=== PATIENT | female | born 1950 | race Caucasian/White ===

== ENCOUNTER 2019-04-30 13:55 | Emergency (ER) | payer OTHER ==
[2019-04-30] MEDS ORDERED: METHYLPREDNISOLONE 125 MG INJ ONE (14:40)
[2019-04-30] MEDS ORDERED: ALBUTEROL 2.5 MG/3 ML NEB SOL ONE (14:41)
[2019-04-30] MEDS ORDERED: IPRATROPIUM BROM 0.5MG/2.5ML ONE (14:41)
[2019-04-30] MEDS ORDERED: AZITHROMYCIN 500 MG/250 ML BAG IV ONE (14:45)
--- NOTE | 2019-04-30 14:56 | RAD REPORT ---
EXAM DESCRIPTION: RAD - Chest Single View - 04/30/2019 2:47 pm CLINICAL HISTORY: CONGESTION COMPARISON: Portable February 2014 TECHNIQUE: AP portable chest image was obtained 04/30/2019 2:47 pm . FINDINGS: No peripheral mass or consolidation. Failure and volume overload are not suspected. Patien t has a mild chronic interstitial pattern similar to comparison. Heart and vasculature are normal. No measurable pleural effusion and no pneumothorax. No acute bony abnormality seen. No acute aortic fin dings suspected. IMPRESSION: Mild chronic interstitial pattern matches comparison. No acute findings.
[2019-04-30 15:21] LABS: Absolute Lymphocytes (CBC) 2.9 K/uL (0.7-4.9); Basophils % 0.4 % (0-1.3); Hematocrit 39.3 % (36.0-45.0); Lymphocytes % 39.3 % (15.3-44.8); MPV 8.6 fL (7.6-11.3); RBC Red Blood Cell Count 4.25 M/uL (3.86-4.86)
[2019-04-30 15:33] LABS: BUN Blood Urea Nitrogen 14 mg/dL (7-18); Bicarbonate 28 mmol/L (21-32); Glucose Level 86 mg/dL (74-106); Potassium 4.3 mmol/L (3.5-5.1); Sodium Level 140 mmol/L (136-145); Troponin (Emerg Dept Use Only) < 0.02 ng/mL (0.0-0.045)
--- NOTE | 2019-04-30 15:53 | EDPHYS ---
Physician Documentation [facility] Name: Desire Edmonds Age: 68 yrs Sex: Female : 1950 Arrival Date: 04/30/2019 Time: 13:58 Bed 13 Private MD: Trace De La Rosa E ED Physician Demetrius Pettit HPI: 04/29 14:34 This 68 yrs old Female presents to ER via Ambulatory with complaints of ma2 Asthma Exacerbation, Breathing Difficulty. 14:34 The patient presents to the emergency department with wheezing, Current therapy: None. ma2 Onset: The symptoms/episode began/occurred gradually, 6 hour(s) ago. Associated signs and symptoms: Pertinent negatives: fever, nausea, vomiting. Severity of symptoms: At their worst the symptoms were mild in the emergency department the symptoms are unchanged. The patient has not experienced similar symptoms in the past. Historical: - Allergies: 14:30 No Known Allergies; em - Home Meds: 14:30 Eliquis 5 mg oral tab [Active]; fluoxetine 40 mg Oral cap [Active]; carvedilol 3.125 mg em oral tab [Active]; montelukast oral oral [Active]; losartan oral oral [Active]; - PMHx: 14:30 CAD; fatty liver; CVA; DVT; PE; em - PSHx: 14:30 Heart stents; Carotid surgery; em - Immunization history:: Adult Immunizations up to date. - Social history:: Smoking status: Patient denies any tobacco usage or history of. Patient/guardian denies using alcohol, street drugs, The patient lives with family. - Family history:: not pertinent. ROS: 14:34 Constitutional: Negative for fever, chills, and weight loss. ma2 14:34 All other systems are negative. Exam: 14:34 Constitutional: This is a well developed, well nourished patient who is awake, alert, ma2 and in no acute distress. Chest/axilla: Normal chest wall appearance and motion. Nontender with no deformity. No lesions are appreciated. Cardiovascular: Regular rate and rhythm with a normal S1 and S2. No gallops, murmurs, or rubs. Normal PMI, no JVD. No pulse deficits. Respiratory: diffuse wheezes, Lungs have equal breath sounds bilaterally, clear to auscultation and percussion. No rales, rhonchi o s noted. No increased work of breathing, no retractions or nasal flaring. Abdomen/GI: Soft, non-tender, with normal bowel sounds. No distension or tympany. No guarding or rebound. No evidence of tenderness throughout. Neuro: Awake and alert, GCS 15, oriented to person, place, time, and situation. Cranial nerves II-XII grossly intact. Motor strength 5/5 in all extremities. Sensory grossly intact. Cerebellar exam normal. Normal gait. Psych: Awake, alert, with orientation to person, place and time. Behavior, mood, and affect are within normal limits. Vital Signs: 14:23 BP 147 / 66; Pulse 59; Resp 17; Temp 98.2(O); Pulse Ox 94% on R/A; Weight 127.01 kg; em Height 5 ft. 0 in. (152.40 cm) (R); Pain 4/10; 15:30 BP 150 / 74; Pulse 61; Resp 20; Pulse Ox 94% on R/A; em 16:30 BP 146 / 64; Pulse 57; Resp 18; Pulse Ox 96% on R/A; em 14:23 Body Mass Index 54.68 (127.01 kg, 152.40 cm) em MDM: 14:10 Patient medically screened. ma2 14:34 Differential diagnosis: acute asthma, exercise-induced asthma, reactive airway, ma2 anaphylaxis, URI, foreign body. Antibiotic administration: The patient is discharged and will get outpatient antibiotics. Data reviewed: vital signs, nurses notes. Counseling: I had a detailed discussion with the patient and/or guardian regarding: the historical points, exam findings, and any diagnostic results supporting the discharge/admit diagnosis, the presence of at least one elevated blood pressure reading (>120/80) during this emergency department visit, the need for outpatient follow up. 04/29 14:30 Order name: Troponin (emerg Dept Use Only); Complete Time: 15:52 [facility] 04/29 14:30 Order name: Blood Culture Adult (2) [facility] 04/29 14:30 Order name: XRAY CXR (1 view); Complete Time: 15:52 [facility] 04/29 14:30 Order name: BMP; Complete Time: 15:52 [facility] 04/29 14:30 Order name: CBC with Diff; Complete Time: 15:25 ma2 04/29 14:30 Order name: EKG; Complete Time: 14:32 pa2 04/29 14:30 Order name: Cardiac monitoring; Complete Time: 14:34 pa2 04/29 14:30 Order name: EKG - Nurse/Tech; Complete Time: 14:48 pa2 04/29 14:30 Order name: IV Saline Lock; Complete Time: 14:48 pa2 04/29 14:30 Order name: Labs collected and sent; Complete Time: 14:33 ma2 04/29 14:30 Order name: O2 Per Protocol; Complete Time: 14:33 ma2 04/29 14:30 Order name: O2 Sat Monitoring; Complete Time: 14:33 ma2 Administered Medications: 14:45 Drug: Albuterol 2.5 mg Route: Inhalation; em 15:33 Follow up: Response: No adverse reaction; Marked relief of symptoms em 14:45 Drug: Albuterol 2.5 mg Route: Inhalation; em 14:45 Drug: Albuterol 2.5 mg Route: Inhalation; em 14:45 Drug: AtroVENT Aerosol 0.5 mg Route: Inhalation; em 15:33 Follow up: Response: No adverse reaction; Marked relief of symptoms em 14:46 Not Given (Other Intervention Used): AtroVENT Aerosol 0.5 mg Inhalation once; Every 20 em min for a total of 3 treatments x3 14:48 Drug: SOLU-Medrol 125 mg Route: IVP; Site: right antecubital; em 15:55 Follow up: Response: No adverse reaction em 15:02 Drug: AZITHromycin 500 mg Route: IVPB; Infused Over: 1 hrs; Site: right antecubital; em 16:43 Follow up: Response: No adverse reaction; IV Status: Completed infusion; IV Intake: em 250ml Disposition: 04/30/19 15:53 Discharged to Home. Impression: Asthma. - Condition is Stable. - Discharge Instructions: Asthma, Pediatric. - Prescriptions for Zithromax Z- Mc 250 mg Oral Tablet - take 1 tablet by ORAL route as directed for 10 days Day 1 - take two (2) tablets one time. Day 2, 3, 4 , 5 take one (1) tablet once daily.; 10 tablet. Medrol (Mc) 4 mg Oral Tablets, Dose Pack - take 1 tablet by ORAL route as directed - follow package instructions; 1 packet. Albuterol Sulfate 90 mcg/actuation - inhale 1-2 puff by INHALATION route every 4-6 hours; 1 Inhaler. Albuterol Sulfate 2.5 mg /3 mL (0.083 %) Inhalation Solution for Nebulization - inhale 1 unit by NEBULIZATION route every 8 hours As needed; 1 box. - Medication Reconciliation Form, Thank You Letter, Antibiotic Education, Prescription Opioid Use form. - Follow up: Private Physician; When: Tomorrow; Reason: Continuance of care. Signatures: Dispatcher [employer] Joe Florence, RN RN Demetrius Diop MD MD ma2 Corrections: (The following items were deleted from the chart) 16:44 15:53 04/30/2019 15:53 Discharged to Home. Impression: Asthma. Condition is Stable. em Prescriptions for Zithromax Z-Mc 250 mg Oral Tablet - take 1 tablet by ORAL route as directed for 10 days Day 1 - take two (2) tablets one time. Day 2, 3, 4 , 5 take one (1) tablet once daily.; 10 tablet, Medrol (Mc) 4 mg Oral Tablets, Dose Pack - take 1 tablet by ORAL route as directed - follow package instructions; 1 packet, Albuterol Sulfate 90 mcg/actuation - inhale 1-2 puff by INHALATION route every 4-6 hours; 1 Inhaler. and Forms are Medication Reconciliation Form, Thank You Letter, Antibiotic Education, Prescription Opioid Use. Follow up: Private Physician; When: Tomorrow; Reason: Continuance of care. ma2
--- NOTE | 2019-04-30 15:53 | ER ---
Nurse's Notes [facility] Name: Desire Edmonds Age: 68 yrs Sex: Female : 1950 Arrival Date: 04/30/2019 Time: 13:58 Bed 13 Private MD: Trace De La Rosa E Diagnosis: Asthma Presentation: 04/29 14:23 Chief complaint: Patient states: cough and trouble breathing for 3 days, denies fever, em has productive cough. Coronavirus screen: The patient has NOT traveled to a country currently being monitored by the [facility] within the last 14 days. The patient has NOT had contact with any known and/or suspected case of coronavirus. Ebola Screen: Patient negative for fever greater than or equal to 101.5 degrees Fahrenheit, and additional compatible Ebola Virus Disease symptoms Patient denies exposure to infectious person. Patient denies travel to an Ebola-affected area in the 21 days before illness onset. No symptoms or risks identified at this time. Initial Sepsis Screen: Does the patient meet any 2 criteria? No. Patient's initial sepsis screen is negative. Does the patient have a suspected source of infection? No. Patient's initial sepsis screen is negative. Risk Assessment: Do you want to hurt yourself or someone else? Patient reports no desire to harm self or others. 14:23 Method Of Arrival: Ambulatory em 14:23 Acuity: RENU 3 em Historical: - Allergies: 14:30 No Known Allergies; em - Home Meds: 14:30 Eliquis 5 mg oral tab [Active]; fluoxetine 40 mg Oral cap [Active]; carvedilol 3.125 mg em oral tab [Active]; montelukast oral oral [Active]; losartan oral oral [Active]; - PMHx: 14:30 CAD; fatty liver; CVA; DVT; PE; em - PSHx: 14:30 Heart stents; Carotid surgery; em - Immunization history:: Adult Immunizations up to date. - Social history:: Smoking status: Patient denies any tobacco usage or history of. Patient/guardian denies using alcohol, street drugs, The patient lives with family. - Family history:: not pertinent. Screenin:00 Abuse screen: Denies threats or abuse. Nutritional screening: No deficits noted. em Tuberculosis screening: No symptoms or risk factors identified. Fall Risk None identified. Assessment: 14:23 General: Appears in no apparent distress. comfortable, Behavior is calm, cooperative, em Denies fever. Pain: Complains of pain in diaphragm Pain currently is 4 out of 10 on a pain scale. Neuro: Level of Consciousness is awake, alert, obeys commands, Oriented to person, place, time, situation, Appropriate for age. Cardiovascular: Denies chest pain, Capillary refill < 3 seconds Patient's skin is warm and dry. Rhythm is sinus rhythm. Respiratory: Reports shortness of breath at rest cough that is productive, Airway is patent Respiratory effort is even, unlabored, Respiratory pattern is regular, symmetrical, Breath sounds are diminished bilaterally. Onset: The symptoms/episode began/occurred 3 days ago, the patient has mild shortness of breath. Derm: Skin is intact, is healthy with good turgor, Skin is pink, warm \T\ dry. Musculoskeletal: Capillary refill < 3 seconds, Range of motion: intact in all extremities. 15:00 Reassessment: Patient appears in no apparent distress at this time. Patient and/or em family updated on plan of care and expected duration. Pain level reassessed. Patient is alert, oriented x 3, equal unlabored respirations, skin warm/dry/pink. Patient states feeling better. Patient states symptoms have improved. 16:10 Reassessment: Patient appears in no apparent distress at this time. Patient and/or em family updated on plan of care and expected duration. Pain level reassessed. Patient is alert, oriented x 3, equal unlabored respirations, skin warm/dry/pink. pending completion of IV ABX before being discharged. Vital Signs: 14:23 BP 147 / 66; Pulse 59; Resp 17; Temp 98.2(O); Pulse Ox 94% on R/A; Weight 127.01 kg; em Height 5 ft. 0 in. (152.40 cm) (R); Pain 4/10; 15:30 BP 150 / 74; Pulse 61; Resp 20; Pulse Ox 94% on R/A; em 16:30 BP 146 / 64; Pulse 57; Resp 18; Pulse Ox 96% on R/A; em 14:23 Body Mass Index 54.68 (127.01 kg, 152.40 cm) em ED Course: 13:00 Patient has correct armband on for positive identification. Placed in gown. Call light em in reach. Side rails up X 1. Side rails up X2. Pulse ox on. NIBP on. 13:00 Arm band placed on. em 13:58 Patient arrived in ED. ag5 13:58 Trace De La Rosa MD is Private Physician. ag5 14:10 Demetrius Pettit MD is Attending Physician. ma2 14:23 Joe Amaya, RN is Primary Nurse. em 14:25 Triage completed. em 14:51 XRAY CXR (1 view) In Process Unspecified. EDMS 14:51 EKG done, by hvac maintenance technician. reviewed by Demetrius Pettit MD. at1 15:00 Initial lab(s) drawn, by ms, sent to lab. Inserted saline lock: 22 gauge in right em antecubital area, using aseptic technique. Blood collected. 16:41 No provider procedures requiring assistance completed. IV discontinued, intact, em bleeding controlled, No redness/swelling at site. Pressure dressing applied. Administered Medications: 14:45 Drug: Albuterol 2.5 mg Route: Inhalation; em 15:33 Follow up: Response: No adverse reaction; Marked relief of symptoms em 14:45 Drug: Albuterol 2.5 mg Route: Inhalation; em 14:45 Drug: Albuterol 2.5 mg Route: Inhalation; em 14:45 Drug: AtroVENT Aerosol 0.5 mg Route: Inhalation; em 15:33 Follow up: Response: No adverse reaction; Marked relief of symptoms em 14:46 Not Given (Other Intervention Used): AtroVENT Aerosol 0.5 mg Inhalation once; Every 20 em min for a total of 3 treatments x3 14:48 Drug: SOLU-Medrol 125 mg Route: IVP; Site: right antecubital; em 15:55 Follow up: Response: No adverse reaction em 15:02 Drug: AZITHromycin 500 mg Route: IVPB; Infused Over: 1 hrs; Site: right antecubital; em 16:43 Follow up: Response: No adverse reaction; IV Status: Completed infusion; IV Intake: em 250ml Intake: 16:43 IV: 250ml; Total: 250ml. em Outcome: 15:53 Discharge ordered by . ma2 16:42 Discharged to home ambulatory. em 16:42 Condition: good 16:42 Discharge instructions given to patient, Instructed on discharge instructions, follow up and referral plans. medication usage, Demonstrated understanding of instructions, follow-up care, medications, Prescriptions given X 4. 16:44 Patient left the ED. em Signatures: Dispatcher [employer] Joe Florence, SAM RN em Cecilia Cortez, batchmaker EKG Tat1 Demetrius Pettit MD MD ma2 Hilton Gonzalez ag5
[2019-04-30 17:05] VITALS: TEMP 98.2
[2019-04-30 17:09] VITALS: BP 146/64; O2SAT 96
--- NOTE | 2019-04-30 21:50 | EKG ---
Test Date: 2019-04-30 Test Time: 14:48:44 Anodizer: CLAUDETTE MEASUREMENT RESULTS: Intervals: Rate: 55 RI: 144 QRSD: 88 QT: 426 QTc: 407 [place]: P: 59 RI: 144 QRS: 11 T: 28 INTERPRETIVE STATEMENTS: Sinus bradycardia Otherwise normal ECG Compared to ECG 03/16/2014 11:23:33 Sinus rhythm no longer present Electronically Signed On 04-30-19 21:49:54 CDT by Michael Diggs
== END 2019-04-30 16:44 | disposition home or self-care (01) ==
LOC: ER 13:55
DX: J45.909 Unspecified asthma, uncomplicated (principal); Z95.818 Presence of other cardiac implants and grafts; Z86.718 Personal history of other venous thrombosis and embolism; Z79.01 Long term (current) use of anticoagulants
CPT/HCPCS: 96365; 93005; 87040 ×2; 85025; 80048; 36415; 84484; 71045; 96375; 99285; 96366; J0456; J2930

== ENCOUNTER 2020-03-21 10:20 | Emergency (ER) | payer OTHER ==
--- OUTSIDE RECORDS SUMMARY | 2020-03-21 10:22 | XMS REPORT | Clinical Summary ---
:1950 Author Organization [facility] Address [address] [place] [address] Care Team Providers Name Role Phone Wily Garcia MD Primary Care Provider Allergies No Known Active Allergies Medications Medication Sig Dispensed Refills Start Date End Date Status gabapentin (NEURONTIN) Take 1 capsule 30 capsule 5 11/25/2016 Active 300 mg (300 mg total) by capsuleIndications: mouth nightly. Primary insomnia montelukast Take 1 tablet (10 90 tablet 3 12/31/2016 Active (SINGULAIR) 10 mg mg total) by tabletIndications: mouth nightly. Moderate asthma with exacerbation, unspecified whether persistent dicyclomine (BENTYL) TAKE ONE CAPSULE 60 capsule 1 03/10/2017 Active 10 MG capsule BY MOUTH TWICE DAILY sertraline (ZOLOFT) TAKE ONE TABLET 30 tablet 5 07/21/2017 Active 100 MG BY MOUTH ONCE tabletIndications: DAILY Depression, unspecified depression type propranolol (INDERAL) TAKE ONE TABLET 60 tablet 5 07/21/2017 Active 10 MG BY MOUTH TWICE tabletIndications: DAILY Essential hypertension, Essential tremor Active Problems Problem Noted Date Pneumonia 04/06/2017 Eczematoid otitis externa 12/31/2016 Irritable bowel syndrome with diarrhea 08/11/2016 Anxiety 08/11/2016 Pain of left lower extremity 07/08/2016 Essential tremor 07/08/2016 Moderate asthma with exacerbation 06/10/2016 Depression 05/14/2016 Bronchitis 05/14/2016 Orthopnea 05/06/2016 Last Assessment & Plan: Unclear if pulmonary issue. Suspect diastolic dysfunction. Euvolumic on exam Echo Return in 1 month. Bilateral low back pain 05/04/2016 Essential hypertension 05/04/2016 Last Assessment & Plan: Chronic. Improved control after Dr riana wiggins. Reviewed and no changes at this time. Lumbar disc disease with radiculopathy 05/04/2016 Glucose intolerance (impaired glucose tolerance) 05/04 Surgical History Surgery Date Site/Laterality Comments COLONOSCOPY 12/16/2016 Divert in the si gmoid and descending colon/mild colon ic spasm consistent with IBS/one 8mm poly p at the hepatic flexure/One 11mm polyp at th e hepatic flexure/BX TAKEN COLONOSCOPY 12/16/2016 N/A Procedure: COLON OSCOPY with bx & cold snare; Surgeon: Mika Mclain MD; Location: [facility]; Service: Gastroenterology; Laterality: N/A; colon polyps, diverticulosis, spastic colon Medical History Medical History Date Comments Hypertension Asthma Stroke (HCC) Hiatal hernia IBS (irritable bowel syndrome) Hemorrhoids Colon polyps Diverticulosis Family History Medical History Relation Name Comments Cancer Father Heart attack Father COPD Mother Relation Name Status Comments Father Mother Social History Tobacco Use Types Packs/Day Years Used Date Former Smoker Quit: 04/30/18 73 Smokeless Tobacco: Never Used Alcohol Use Drinks/Week oz/Week Comments No Sex Assigned at Date Recorded Not on file Last Filed Vital Signs Not on file Plan of Treatment Health Maintenance Due Date Last Done Comments COVID-19 VACCINE (1 of 2) 1966 HEPATITIS C SCREENING 10/19/1969 BREAST CANCER SCREENING 10/19/2001 COLONOSCOPY SCREENING 10/19/2001 SHINGLES VACCINES (#1) 10/19/2001 65+ PNEUMOCOCCAL VACCINE (1 of 1 - PPSV23) 10/19/2016 INFLUENZA VACCINE 09/15/2019 Results Not on fileafter 03/21/2019 Advance Directives For more information, please contact: [phone] Type Date Recorded Patient [employer] Explanati on Advance Directives, 11/09/2019 4:31 AM Living Will and Medical Power of Train Examiner Advance Directives, 11/09/2019 4:34 AM Living Will and Medical Power of Train Examiner Advance Directives, 11/26/2016 12:19 PM Living Will and Medical Power of Train Examiner Advance Directives, 04/06/2017 4:05 PM Living Will and Medical Power of Train Examiner
--- OUTSIDE RECORDS SUMMARY | 2020-03-21 10:23 | XMS REPORT | Continuity of Care Document ---
:1950 Author Organization [facility] t Address [address]. [address] [place] [address] Care Team Providers Name Role Phone Wily Garcia MD Primary Care Physician Zelda LUX Attending Clinician Unavailable JENIFER Attending Clinician Unavailable Zelda LUX Admitting Clinician Unavailable JENIFER Admitting Clinician Unavailable AMANDA Admitting Clinician Unavailable Problems Condition Condition Condition Status Onset Resolution Last Treating Co mments Source Name Details Category Date Date Treatment Clinician Date Pneumonia Pneumonia Disease Active [place] [facility] 2-21 [facility] 00:[facility]: st 00 Eczematoid Eczematoid Disease Active 2016-02 [place] otitis otitis 1-17 [facility] externa externa 00:00: st 00 Irritable Irritable Disease Active [place] bowel bowel 6-28 [facility] syndrome syndrome 00:00: st with with 00 diarrhea diarrhea Anxiety Anxiety Disease Active [place] 6-28 Methodi 00:00: st 00 Pain of Pain of Disease Active [place] left lower left lower 5-25 Me thodi extremity extremity 00:00: st 00 Essential Essential Disease Active [place] tremor tremor 5-25 Methodi 00:00: st 00 Moderate Moderate Disease Active [place] asthma asthma 4-27 Methodi with with 00:00: st exacerbati exacerbati 00 on on Depression Depression Disease Active [place] 3-31 Methodi 00:00: st 00 Bronchitis Bronchitis Disease Active [place] 3-31 Methodi 00:00: st 00 Orthopnea Orthopnea Disease Active Last [place] [facility] 3 Assessmen Methodi 00:00: t & Plan: st 00 Unclear if pulmonary issue. Suspect diastolic dysfuncti on.Euvolu caprice on examEchoR eturn in 1 month. Bilateral Bilateral Disease Active [place] low back low back 3- Method i pain pain 00:00: st 00 Essential Essential Disease Active Last [place] hypertensi hypertensi 05-04 Assessmen Methodi on on 00:00: t & Plan: st Chronic.I mproved control after Dr mayers adjusted meds.Revi ewed and no changes at this time. Lumbar Lumbar Disease Active [place] disc disc 05-04 [facility] disease disease 00:00: st with with 00 radiculopa radiculopa thy thy Glucose Glucose Disease Active [place] intoleranc intoleranc 3 Me thodi e e 00:00: st (impaired (impaired 00 glucose glucose tolerance) tolerance) Personal [facility] - other other [facility] mental and mental and l behavioral behavioral (L UF/LI disorders disorders V/SA ) Asthma Ast[facility] Problem [facility] ([facility]F/LI V/SA) Cerebrovas Cerebrovas Problem Active [facility]ular [facility] accident accident [facility] (LUF/LI V/SA) Dyspnea Dyspnea Problem Active [facility] (LUF/LI V/SA) Back Back Problem Active [facility] problem problem [facility] (LUF/LI V/SA) Peripheral Peripheral Problem Active [facility] vascular vascular [facility] - disease disease [facility] (disorder) (disorder) l (LUF/LI V/SA) Hypothyroi Hypothyroi Problem Active [facility] dism dism [facility] (LUF/LI V/SA) Disorder Disorder Problem [facility] - cardiovasc cardiovasc [place] ular ular l system system (LUF/LI V/SA) Allergies, Adverse Reactions, Alerts This patient has no known allergies or adverse reactions. Family History Family Member Diagnosis Comments Start Date Stop Date Source Father Myocardial infarction [facility] (LUF/ARISTIDES/SA) Mother Type [address] [facility] (LUF/ARISTIDES/SA) Natural father Cancer [facility] thodist Natural father Heart attack [place] [facility] Natural mother COPD [facility] thodist Social History Social Habit Start Date Stop Date Quantity Comments Source Sex Assigned At [facility] ethodist Tobacco use and 2017-04-06 2017-04-06 Never used [facility] ethodist exposure 00:00:00 00:00:00 Alcohol intake 2017-04-06 2017-04-06 Current [facility] thodist 00:00:00 00:00:00 non-drinker of alcohol (finding) History of 1971-05-01 Current smoker [facility] thodist tobacco use 00:00:00 Smoking Status Start Date Stop Date Source Never smoker [facility] (LUF/ARISTIDES/SA) Former smoker 2017-04-06 00:00:00 2017-04-06 00:00:00 [place] [facility] Medications Ordered Filled Start Stop Current Ordering Indication Dosage Frequency Signature Comments Components Source Medication Medication Date Date Medication? Clinician (SIG) Name Name sertraline Yes Depression, TAKE ONE [place] (ZOLOFT) 6-07 unspecified TABLET BY Methodi 100 MG 00:00: depression MOUTH ONCE st tablet 00 type DAILY propranolol Yes Essential TAKE ONE [place] (INDERAL) 6-07 tremor TABLET BY [facility] hodi 10 MG 00:00: MOUTH st tablet 00 TWICE DAILY dicyclomine Yes TAKE ONE naman (BENTYL) 10 1-25 CAPSULE BY [place] thodi MG capsule 00:00: MOUTH st 00 TWICE DAILY montelukast 2016-02 Yes Moderate 10mg QD Take 1 [place] (SINGULAIR) 1-17 asthma with tablet (10 Methodi 10 mg 00:00: exacerbatio mg total) st tablet 00 n, by mouth unspecified nightly. whether persistent gabapentin 2016-02 Yes Primary 300mg QD Take 1 [place] (NEURONTIN) 0-12 insomnia capsule M ethodi 300 mg 00:00: ([address] capsule 00 total) by mouth nightly. Aspirin Aspirin Yes 81mg QD [facility] (LUF/LI V/SA) atorvastati atorvastati Yes 20mg QD [facility] n 20 MG n 20 MG [facility] - Oral Tablet Oral Tablet M emoria l (LUF/LI V/SA) Breo Breo Yes 1inh QD [facility] Ellipta Ellipta [facility] - Inhaler 100 Inhaler 100 M emoria mcg-25 mcg-25 l mcg/dose mcg/dose (LUF/LI V/SA) Levothyroxi Levothyroxi Yes 25mcg QD [facility] ne Oral ne Oral [facility] (LUF/LI V/SA) Losartan Losartan Yes 25mg QD [facility] Potassium Potassium [facility] - 25 MG Oral 25 MG Oral Mem oria Tablet Tablet l (LUF/LI V/SA) meloxicam meloxicam Yes 15mg QD [facility] 15 MG Oral 15 MG Oral Tr es - Tablet Tablet Memoria l (LUF/LI V/SA) montelukast montelukast Yes 10mg QD [facility] 10 MG Oral 10 MG Oral Tr es - Tablet Tablet [facility] (LUF/LI V/SA) Sertraline Sertraline Yes 25mg QD [facility] 25 MG Oral 25 MG Oral Tr es - Tablet Tablet Mem[facility] l (LUF/LI V/SA) Tizanidine Tizanidine Yes muscle 2mg TID [facility] Oral Oral spasticity [facility] (LUF/LI V/SA) Immunizations Ordered Immunization Filled Immunization Date Status Commen ts Source Name Name influenza virus influenza virus 2018-02-14 Completed [facility] - vaccine, NOS vaccine, NOS 00:00:00 [facility] (LUF/ARISTIDES/SA) pneumococcal pneumococcal 2017-11-14 [facility] vaccine, NOS 00:00:00 [facility] (F/ARISTIDES/SA) Vital Signs Vital Name Observation Time Observation Value Comments Source BP Systolic 2018-05-12 14:30:00 130 mm[Hg] [facility] (LUF/ARISTIDES/SA) BP Diastolic 2018-05-12 14:30:00 60 mm[Hg] [facility] (LUF/ARISTIDES/SA) Pulse Rate 2018-05-12 14:03:00 56 /min [facility] (LUF/ARISTIDES/SA) Respiratory Rate 2018-05-12 14:03:00 19 /min [facility] (F/ARISTIDES/SA) O2% BldC Oximetry 2018-05-12 14:03:00 94 % [facility] (LUF/ARISTIDES/SA) Body Temperature 2018-05-12 12:20:00 97.9 F [facility] (LUF/ARISTIDES/SA) Weight Measured 2018-05-12 07:03:00 170.85 lbs [facility] Addi [facility] (LUF/ARISTIDES/SA) Height 2018-05-11 20:45:00 60 in [facility] (LUF/ARISTIDES/SA) BMI (Body Mass Index) 2018-05-11 20:45:00 33.5 kg/m2 [facility] (LUF/ARISTIDES/SA) Body Temperature 2018-04-30 14:54:00 98.3 F [facility] (F/ARISTIDES/SA) Pulse Rate 2018-04-30 14:54:00 76 /min [facility] (LUF/ARISTIDES/SA) Respiratory Rate 2018-04-30 14:54:00 20 /min [facility] (F/ARISTIDES/SA) O2% BldC Oximetry 2018-04-30 14:54:00 100 % [facility] (LUF/ARISTIDES/SA) BP Systolic 2018-04-30 14:54:00 136 mm[Hg] [facility] (LUF/ARISTIDES/SA) BP Diastolic 2018-04-30 14:54:00 74 mm[Hg] [facility] (LUF/ARISTIDES/SA) Height 2018-04-30 14:54:00 60 in [facility] (F/ARISTIDES/SA) Weight Measured 2018-04-30 14:54:00 169.75 lbs [facility] Addi [facility] (LUF/ARISTIDES/SA) BMI (Body Mass Index) 2018-04-30 14:54:00 33.3 kg/m2 [facility] (F/ARISTIDES/SA) Procedures This patient has no known procedures. Plan of Care Planned Activity Planned Date Details Comments Source Future Scheduled 2019-09-15 INFLUENZA VACCINE [place] [facility] Test 00:00:00 [code = INFLUENZA VACCINE] Future Scheduled 2016-10-19 65+ PNEUMOCOCCAL [place] [facility] Test 00:00:00 VACCINE (1 of 1 - PPSV23) [code = 65+ PNEUMOCOCCAL VACCINE (1 of 1 - PPSV23)] Future Scheduled 2001-10-19 BREAST CANCER [facility] thodist Test 00:00:00 SCREENING [code = BREAST CANCER SCREENING] Future Scheduled 2001-10-19 COLONOSCOPY SCREENING [place] [facility] Test 00:00:00 [code = COLONOSCOPY SCREENING] Future Scheduled 2001-10-19 SHINGLES VACCINES (#1) [place] [facility] Test 00:00:00 [code = SHINGLES VACCINES (#1)] Future Scheduled 1969-10-19 Hepatitis C screening [place] [facility] Test 00:00:00 (procedure) [code = 071747952] Future Scheduled 1967 COVID-19 VACCINE (1 of [place] [facility] Test 00:00:00 2) [code = COVID-19 VACCINE (1 of 2)] Encounters Start End Encounter Admission Attending Care Care Encounter Source Date/Time Date/Time Type Type Clinicians Facility Department ID 2019-11-30 2019-11-30 Outpatient MHSE [id number] MH 10:08:00 10:08:00 [facility] 2018-05-26 2018-05-26 PERS HX 3 JENIFER, [facility] [id number] 14:19:00 23:59:00 TIA & CI [facility] - NO RESID [facility] DEFICIT [address] ([address], V/SA) [place] [address] 2018-05-11 2018-05-12 TYPE 2 DM O JENIFER, [facility] [id number] 21:00:00 15:07:00 DIAB P [facility]ENIA [facility] GN[facility]N [address], V/SA) [place] [address] 2018-04-30 2018-04-30 ACUTE UP E AMANDA, [facility] [id number] 14:44:00 16:00:00 [facility] INFECTION [address], V/SA) [place] [address] 2017-11-09 2017-11-09 UNS ASTHMA E KOSCI, [facility] [id number] 11:00:00 14:48:00 W/ACUTE JOVANA [facility] - [facility] ia ON [address], V/SA) [place] [id number] Results Test Description Test Time Test Comments Results Result Comments Source ED2 CMP 2019-01-05 18:58:00 Test Item Value Reference Range Interpretation Comme nts Sodium (test code = NA) 142 mmol/l 128-145 Potassium (test code = K) 4.5 mmol/l 3.6-5.1 CO2 (test code = CO2) 30 mmol/l 18-33 Chloride (test code = CL) 101 mmol/l 98-108 Glucose (test code = GLU) 188 mg/dl 73-118 H Calcium (test code = CALC) 9.6 mg/dl 8.0-10.3 BUN (test code = BUN) 18 mg/dl 7-22 Creatinine (test code = CREA) 0.9 mg/dl 0.6-1.2 Alkaline Phos (test code = ALKP) 80 U/L 42-141 ALT (SGPT) (test code = ALT) 18 U/L 10-47 AST (SGOT) (test code = AST) 30 U/L 11-38 Total Bilirubin (test code = TBIL) 0.7 mg/dl 0.2-1.6 Albumin (test code = ALB) 3.7 gm/dl 3.3-5.5 T Protein (test code = TP) 7.0 gm/dl 6.4-8.1 ED2 [id number] 18:57:00 Test Item Value Reference Range Interpretation Comments Pro-BNP(B-Peptide) 61 0-125 THE METHO DOLOGY FOR DETECTION (test code = OF B-NATRIURETI C PEPTIDE HAS PROBNP) BEEN CHANGED T O "NT pro-BNP". THE N ORMAL RANGES HAVE CHANGED. PLEASE NOTE THAT RANGES ARE DEFINED BY THE AGE OF THE PATIENT. (<75 years old = 0-1 25 pg/ml 75years and old er = 0-450pg/ml). V ALUES ARE NOT INTERCHANGEABLE BETWEEN METHODS. 2006 ED2 TROPONIN-I [id number] 18:57:00 Test Item Value Reference Range Interpretation Comments Troponin-I (test 0.010 ng/ml 0.000-0.034 The 99th Pe rcentile URL code = TROP) is 0.045 ng/mL for the [employer] T roponin I. The Joint Euro pean Society of Cardiology/Kacy searcy hospitalkaren College of Card iology (ESC/ACC) and maricarmen hayes [facility] of Clinical [place] rosalinda Standards of La boratory Practices (NACB ) recommends that the diagnosis of AM I includes the presence of clinical history suggest liu of Acute Coronary Syndrome (ACS) and a max imum concentration o f cardiac troponin exceed ing the 99th percentile of a normal referenc e population [upp er reference limit (URL)] on at least one oc casion during the firs t 24 hours after the clini peggy event. ED2 [id number] 18:56:00 Test Item Value Reference Range Interpretation Comments WBC (test code = WBC) 6.8 10\\S\\9/L 3.5-10.0 LY% (test code = LY) 35.6 % 15.0-50.0 MIDS% (test code = MIDS) 6.4 % 2.0-15.0 Granulocytes % (test code = 58.0 % 35.0-80.0 GRA%) Lymphocytes (test code = 2.4 10\\S\\9/L 0.5-5.0 LYMPH) MID (test code = MID) 0.5 10\\S\\9/L 0.1-1.5 Granulocytes (test code = 3.9 10\\S\\9/L 1.2-8.0 GRAN) RBC (test code = RBC) 4.25 10\\S\\12/L 3.50-5.50 Hemoglobin (test code = HGB) 13.2 gm/dl 11.5-16.5 Hematocrit (test code = HCT) 39.2 % 35.0-55.0 MCV (test code = MCV) 92.1 fL 75.0-100.0 MCH (test code = MCH) 31.1 pg 25.0-35.0 MCHC (test code = MCHC) 33.7 gm/dl 31.0-38.0 RDW % (test code = RDW%) 12.9 % 11.0-16.0 MPV (test code = MPV) 9.4 fL 8.0-11.[address] HEAD W/O [id number] 17:51:43LEFT leg numbnessProcedure: ED2 CT HEAD W/O CONTRAST Exam Date: 01/05/2019 5:07 PMOrdering Provider: SASHA TODDlinical Indication: [id number]: NumbnessComparison: Head CT May 26, 2018Technique: CT head without contrast. 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 Chronic changes as above.This final report was electronically signed by Dr Phoenix Tabares MD 01/05/20195:45 PMDictated By: GAYATHRI TABARESKDate: 01/05/2019 17:45TIC CT HEAD W/O [id number] 15:51:15Procedure: TIC CT HEAD W/O CONTRAST Exam Date: 05/26/2018 3:00 PMOrdering Provider: YESENIA Lakeinical Indication: History transient ischemic attack. Change in speech andvoice. Hypertension.C omparison: None.Technique: CT head without contrast. 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 Chronic changes as above.This final report was electronically signed by Dr Kareem Christian DO 05/26/20183:44 PMDictated By: CHASE CHRISTIANINDate: 05/26/2018 15:44TYPE & [id number] 06:52:00 Test Item Value Reference Range Interpretation Comments ABO Blood Type (test code = ABO) B Rh (test code = RH) Positive Antibody Screen (test code = ABSCR) Negative Negative N ARMBAND# (test code = ARMBAND) GG 72 081 CBC WITH AUTO [id number] 06:18:00 Test Item Value Reference Range Interpretation Comments WBC (test code = 9.63 10\\S\\3/ul 4.80-10.80 WBC) RBC (test code = 4.43 10\\S\\6/ul 4.20-5.40 RBC) Hemoglobin (test 13.7 gm/dl 12.0-14.0 code = HGB) Hematocrit (test 42.1 % 37.0-47.0 code = HCT) MCV (test code = 95.0 fL 81.0-99.0 MCV) MCH (test code = 30.9 pg 27.0-31.0 MCH) MCHC (test code = 32.5 gm/dl 33.0-37.0 L MCHC) RDW (test code = 14.0 % 11.5-14.5 RDWVC) Platelet (test code 257 10\\S\\3/ul 130-400 = PLT) MPV (test code = 10.7 fL 7.4-10.4 A "NOT MEASUR ED" MPV) RESULTS ARE DIS PLAYED WHEN THE INSTRU MENT HAS A SUPPRESSE D OR UNREPORTABLE RE SULT. THIS WILL MOST OFTEN HAPPEN WITH THE MPV WHEN THERE IS A N ABNORMAL PLATEL ET DISTRIBUTION DU E TO A CRITICAL LOW VA LUE OR PLATELET CLUMPI NG. THE RDW MAY BE SUPPRESSED IF T HERE ARE MULTIPLE PE AKS PRESENT ON THE RBC HISTOGRAM. IN THIS CASE, A MANUAL REVIEW OF THE SLIDE WI LL BE PERFORMED, AND RBC MORPHOLOGY WILL BE NOTED ON THE RE PORT. NE% (test code = 51.3 % 42.0-75.0 NE) LY% (test code = 38.3 % 13.0-42.0 LY) MO% (test code = 6.9 % 4.0-14.0 MO) EO% (test code = 2.5 % 1.0-5.0 EO) BA% (test code = 0.7 % 0.0-3.0 BA) IG% (test code = 0.3 % 0.0-0.4 IG%) [id number] 06:14:00 Test Item Value Reference Range Interpretation Comments Sodium (test code = 143 mmol/l 137-145 NA) Potassium (test 3.7 mmol/l 3.5-5.1 code = K) Chloride (test code 109 mmol/l 98-107 H = CL) Calcium (test code 8.8 mg/dl 8.5-10.1 = CALC) CO2 (test code = 26 mmol/l 21-32 CO2) Glucose (test code 118 mg/dl 74-106 H = GLU) BUN (test code = 15.0 mg/dl 7.0-18.0 BUN) Creatinine (test 1.0 mg/dl 0.5-1.3 code = CREA) EGFR if >60 Armenian (test code mL/min/1.73m\\ = EGFRAA) S\\2 EGFR if Non- 59 Estimate d Glomerular Armenian (test code mL/min/1.73m\\ Filtrat ion Rate (eGFR) = EGFRNA) S\\2 Reference Inter vals Decision Points for 18 years and older and average body ma ss: >= 60 Does not exc lude kidney disease. 30 - 59 Suggests modera te chronic kidney disease and indicat es the need for furthe r investigation including asses sment of proteinuria and cardiovascular factors. < 30 Usually in dicates a need for refe rral for assessment and management of c hronic kidney failure. XR CHEST 2 PA [id number] 12:31:32Procedure: XR CHEST 2 PA LATERALOrder Date: 05/08/2018 10:59 AMOrdering Provider: YESENIA Lakeinical Indication: [id number]: Pre-surgery evaluationComparison: November 09, 2017Findings:The lungs are clear and well-aerated. No pleural effusion or pneumothorax.Vascular calcifications are seen at theaortic arch. Cardiac silhouette isnormal in size.Impression:No acute pulmonary process.This final report was electronically signed by Dr Phoenix Tabares MD 05/08/201812:25 PMDictated By: GAYATHRI TABARESKDate: 05/08/2018 12:[id number] 11:59:00 Test Item Value Reference Range Interpretation Comments Sodium (test code = 145 mmol/l 137-145 NA) Potassium (test 3.8 mmol/l 3.5-5.1 code = K) Chloride (test code 110 mmol/l 98-107 H = CL) Calcium (test code 9.4 mg/dl 8.5-10.1 = CALC) CO2 (test code = 31 mmol/l 21-32 CO2) Glucose (test code 100 mg/dl 74-106 = GLU) BUN (test code = 18.0 mg/dl 7.0-18.0 BUN) Creatinine (test 0.9 mg/dl 0.5-1.3 code = CREA) EGFR if >60 Armenian (test code mL/min/1.73m\\ = EGFRAA) S\\2 EGFR if Non- >60 Estimate d Glomerular Armenian (test code mL/min/1.73m\\ Filtrat ion Rate (eGFR) = EGFRNA) S\\2 Reference Inter vals Decision Points for 18 years and older and average body ma ss: >= 60 Does not exc lude kidney disease. 30 - 59 Suggests modera te chronic kidney disease and indicat es the need for furthe r investigation including asses sment of proteinuria and cardiovascular factors. < 30 Usually in dicates a need for refe rral for assessment and management of c hronic kidney failure. CORONARY [id number] 11:59:00 Test Item Value Reference Range Interpretation Comments Triglycerides (test 121 mg/dl 0-149 Trig. In terpretation code = TRIG) Guide: Nor mal: < 150 mg/dl Borderline High : 150 - 199 mg/dl High: 200 - 499 mg/dl Very High: >= 5 00 mg/dl Cholesterol (test code 177 mg/dl 0-200 = CHOL) HDL (test code = HDL) 64 mg/dl 35-86 dLDL (test code = 91 mg/dl 0-99 Direct LDL DILDL) Intrepretations : Optimal: <100 mg/dl Suspect: 100 - 129 mg/dl Border line: 130 - 159 mg/dl High: 160 - 189 mg/dl Very High: >1 90 mg/dl Risk Factor (test code 2.8 0.0-4.4 Risk Factor = RFACT) Men Women R isk Factor 3.4 3.3 1/ 2 Average 5.0 4.4 Average 9.6 7.1 2X Average 24.0 11.0 3X Average vLDL (test code = 24 mg/dl 20-50 VLDL) CBC (HEMOGRAM ONLY)2018-05-08 11:42:00 Test Item Value Reference Range Interpretation Comments WBC (test code = 7.86 10\\S\\3/ul 4.80-10.80 WBC) RBC (test code = 4.54 10\\S\\6/ul 4.20-5.40 RBC) Hemoglobin (test 13.9 gm/dl 12.0-14.0 code = HGB) Hematocrit (test 42.7 % 37.0-47.0 code = HCT) MCV (test code = 94.1 fL 81.0-99.0 MCV) MCH (test code = 30.6 pg 27.0-31.0 MCH) MCHC (test code = 32.6 gm/dl 33.0-37.0 L MCHC) RDW (test code = 13.8 % 11.5-14.5 RDWVC) Platelet (test code 254 10\\S\\3/ul 130-400 = PLT) MPV (test code = 10.8 fL 7.4-10.4 A "NOT MEASUR ED" MPV) RESULTS ARE DIS PLAYED WHEN THE INSTRU MENT HAS A SUPPRESSE D OR UNREPORTABLE RE SULT. THIS WILL MOST OFTEN HAPPEN WITH THE MPV WHEN THERE IS A N ABNORMAL PLATEL ET DISTRIBUTION DU E TO A CRITICAL LOW VA LUE OR PLATELET CLUMPI NG. THE RDW MAY BE SUPPRESSED IF T HERE ARE MULTIPLE PE AKS PRESENT ON THE RBC HISTOGRAM. IN THIS CASE, A MANUAL REVIEW OF THE SLIDE WI LL BE PERFORMED, AND RBC MORPHOLOGY WILL BE NOTED ON THE RE PORT. STREP A [id number] 06:48:00 Test Item Value Reference Range Interpretation Comments Strep A culture (test code = STRAC) Negative Negative N ED2 FLU [id number] 15:25:00 Test Item Value Reference Range Interpretation Comments Flu A Screen (test code = FLUA) Negative Flu B Screen (test code = FLUB) Negative ED2 STREP [id number] 15:22:00 Test Item Value Reference Range Interpretation Comments Strep A Screen (test code = SAS) Negative Negative N ED2 [id number] 19:36:00 Test Item Value Reference Range Interpretation Comments Sodium (test code = NA) 143 mmol/l 128-145 Potassium (test code = K) 4.1 mmol/l 3.6-5.1 CO2 (test code = CO2) 27 mmol/l 18-33 Chloride (test code = CL) 100 mmol/l 98-108 Glucose (test code = GLU) 148 mg/dl 73-118 H Calcium (test code = CALC) 9.7 mg/dl 8.0-10.3 BUN (test code = BUN) 11 mg/dl 7-22 Creatinine (test code = CREA) 0.9 mg/dl 0.6-1.2 ED2 [id number] 19:35:00 Test Item Value Reference Range Interpretation Comments WBC (test code = WBC) 12.1 10\\S\\9/L 3.5-10.0 H LY% (test code = LY) 24.7 % 15.0-50.0 MIDS% (test code = MIDS) 6.2 % 2.0-15.0 Granulocytes % (test code = 69.1 % 35.0-80.0 GRA%) Lymphocytes (test code = 3.0 10\\S\\9/L 0.5-5.0 LYMPH) MID (test code = MID) 0.8 10\\S\\9/L 0.1-1.5 Granulocytes (test code = 8.3 10\\S\\9/L 1.2-8.0 H GRAN) RBC (test code = RBC) 4.91 10\\S\\12/L 3.50-5.50 Hemoglobin (test code = HGB) 14.7 gm/dl 11.5-16.5 Hematocrit (test code = HCT) 42.7 % 35.0-55.0 MCV (test code = MCV) 86.9 fL 75.0-100.0 MCH (test code = MCH) 29.9 pg 25.0-35.0 MCHC (test code = MCHC) 34.5 gm/dl 31.0-38.0 RDW % (test code = RDW%) 13.9 % 11.0-16.0 Platelet (test code = PLT) 336 10\\S\\9/L 100-400 MPV (test code = MPV) 8.2 fL 8.0-11.0 A ED2 XR CHEST 2 PA [id number] 10:51:31[facility]- [id number] ReportingPT Name: Husam PayneOB: 1950MRN: [id number]: Two-view chestOrder date: 11/08/2017 11:47 PMClinical indication: Sore throat and congestionComparison: NoneFindings:Heart size is normal.Left basilar atelectasis withtrace anterior pleural effusion. This also mayrepresent a prominent or cardiac fat pad.Otherwise, the lungs are clear.No pneumothorax. Osseous structures are nonacute.No evidence of active tuberculosis.Impression:Left basilar atelectasis with trace anterior pleural effusion versus prominentcardiac fatpad. Otherwise, nonacute two-view chest.This final report was electronically signed by Dr Taylor Garcia MD 11/10/201710:45 AMDictated By: TAYLOR GARCIADate: 11/10/2017 10:45
[2020-03-21 12:04] LABS: Absolute Lymphocytes (CBC) 2.5 K/uL (0.7-4.9); Basophils % 1.2 % (0-1.3); Hematocrit 43.1 % (36.0-45.0); Lymphocytes % 35.1 % (15.3-44.8); MPV 8.5 fL (7.6-11.3)
[2020-03-21 12:21] LABS: Potassium 4.7 mmol/L (3.5-5.1)
--- NOTE | 2020-03-21 12:52 | RAD REPORT ---
EXAM DESCRIPTION: US - Transvaginal Study Probe - 03/21/2020 12:39 pm CLINICAL HISTORY: VAGINAL BLEEDING Pelvic pain. COMPARISON: No comparisons FINDINGS: The uterus is somewhat small in size without myometrial mass. The uterus measures 3.7 x 3. 8 x 3.1 cm. The endometrial stripe measures 5 mm, normal. Neither ovary was sonographically visible, likely related to ovarian atrophy. No adnexal masses. No significant pelvic ascites. IMPRESSION: Unremarkable examination except for nonvisualization of the ovaries likely related to at rophy.
--- NOTE | 2020-03-21 13:00 | EDPHYS ---
Physician Documentation [facility] Name: Desire Edmonds Age: 69 yrs Sex: Female : 1950 Arrival Date: 03/21/2020 Time: 10:25 Bed 5 Private MD: Trace De La Rosa E ED Physician Walker Salazar HPI: 03/21 12:07 This 69 yrs old Female presents to ER via Ambulatory with complaints of jr8 Vaginal Bleeding. 12:07 The patient presents with vaginal bleeding that is spotting. Onset: The jr8 symptoms/episode began/occurred gradually, 1 week(s) ago. Modifying factors: The symptoms are alleviated by nothing, the symptoms are aggravated by nothing. Associated signs and symptoms: Pertinent positives: nausea, abdominal discomfort . Severity of symptoms: At their worst the symptoms were mild, in the emergency department the symptoms are unchanged. The patient has not experienced similar symptoms in the past. The patient has not recently seen a physician. Patient is on Eliquis. Last menstrual period was in her 50s. Has had no problems since then . Historical: - Allergies: 10:32 Hydrochlorothiazide; ss - PMHx: 10:32 CAD; CVA; DVT; fatty liver; PE; Asthma; ss - PSHx: 10:32 Heart stents; Carotid surgery; ss - Immunization history:: Adult Immunizations up to date. - Social history:: Smoking status: Patient denies any tobacco usage or history of. ROS: 12:07 Eyes: Negative for injury, pain, redness, and discharge, ENT: Negative for injury, jr8 pain, and discharge, Neck: Negative for injury, pain, and swelling, Cardiovascular: Negative for chest pain, palpitations, and edema, Respiratory: Negative for shortness of breath, cough, wheezing, and pleuritic chest pain, Back: Negative for injury and pain, MS/Extremity: Negative for injury and deformity, Skin: Negative for injury, rash, and discoloration, Neuro: Negative for headache, weakness, numbness, tingling, and seizure. 12:07 Abdomen/GI: Positive for abdominal pain, Negative for nausea, vomiting, and diarrhea, hematemesis, black/tarry stool, rectal pain, rectal bleeding, bowel incontinence, flatulence. 12:07 : Positive for vaginal bleeding. Exam: 12:07 Constitutional: This is a well developed, well nourished patient who is awake, alert, jr8 and in no acute distress. Cardiovascular: Regular rate and rhythm with a normal S1 and S2. No gallops, murmurs, or rubs. Normal PMI, no JVD. No pulse deficits. Respiratory: Lungs have equal breath sounds bilaterally, clear to auscultation and percussion. No rales, rhonchi or wheezes noted. No increased work of breathing, no retractions or nasal flaring. Back: No spinal tenderness. No costovertebral tenderness. Full range of motion. Skin: Warm, dry with normal turgor. Normal color with no rashes, no lesions, and no evidence of cellulitis. MS/ Extremity: Pulses equal, no cyanosis. Neurovascular intact. Full, normal range of motion. Neuro: Awake and alert, GCS 15, oriented to person, place, time, and situation. Cranial nerves II-XII grossly intact. Motor strength 5/5 in all extremities. Sensory grossly intact. Cerebellar exam normal. Normal gait. 12:07 Abdomen/GI: Inspection: obese Bowel sounds: active, all quadrants, Palpation: soft, in all quadrants, mild abdominal tenderness, in the suprapubic area, right lower quadrant and left lower quadrant, mass, that is pulsatile, rebound tenderness, is not appreciated, voluntary guarding, is not appreciated, involuntary guarding, is not appreciated, no appreciated organomegaly, Indicators: McBurney's point is not tender, Wright's sign is negative, Rovsing's sign is negative, Liver: tenderness, is not appreciated. Vital Signs: 10:30 BP 149 / 87; Pulse 66; Resp 20; Temp 97.2(TE); Pulse Ox 95% on R/A; Weight 83.01 kg; ss Height 4 ft. 10 in. (147.32 cm); Pain 0/10; 13:00 BP 157 / 67; Pulse 51; Resp 17; Pulse Ox 98% ; Pain 0/10; jl7 10:30 Body Mass Index 38.25 (83.01 kg, 147.32 cm) MDM: 11:23 Patient medically screened. jr8 12:58 Data reviewed: vital signs, nurses notes, lab test result(s), radiologic studies, jr8 ultrasound. Data interpreted: Pulse oximetry: on room air is 95 %. Interpretation: normal. Counseling: I had a detailed discussion with the patient and/or guardian regarding: the historical points, exam findings, and any diagnostic results supporting the discharge/admit diagnosis, lab results, radiology results, the need for outpatient follow up, an OB/Gyne specialist, to return to the emergency department if symptoms worsen or persist or if there are any questions or concerns that arise at home. 12:58 ED course: Patient hemodynamically stable. No lab or imaging abnormality noted. 8 Recommended f/u with NURSE ESTHETICIAN. No gross hemorrhage intravaginally. . 03/21 11:42 Order name: CBC with Diff [facility] 03/21 11:42 Order name: Basic Metabolic Panel [facility] 03/21 11:42 Order name: IV; Complete Time: 12:01 8 03/21 11:42 Order name: US Transvaginal Study (Probe); Complete Time: 12:58 8 03/21 11:43 Order name: CBC with Automated Diff; Complete Time: 12:06 EDMS 03/21 11:43 Order name: Basic Metabolic Panel; Complete Time: 12:38 EDMS Administered Medications: No medications were administered Disposition: 13:15 Co-signature as Attending Physician, Walker Salazar MD. rn Disposition: 03/21/20 13:00 Discharged to Home. Impression: Abnormal uterine and vaginal bleeding, unspecified. - Condition is Stable. - Discharge Instructions: Abnormal Uterine Bleeding. - Medication Reconciliation Form, Thank You Letter, Antibiotic Education, Prescription Opioid Use form. - Follow up: Private Physician; When: 1 - 2 days; Reason: Recheck today's complaints, Continuance of care, Re-evaluation by your physician. - Problem is new. - Symptoms have improved. Signatures: Dispatcher [employer] EDMS Walker Salazar MD MD rn Smirch, Shelby, RN RN ss Roszak, Josh, PA PA jr8 Una Majano RN RN jl7 Corrections: (The following items were deleted from the chart) 13:14 13:00 03/21/2020 13:00 Discharged to Home. Impression: Abnormal uterine and vaginal jl7 bleeding, unspecified. Condition is Stable. Forms are Medication Reconciliation Form, Thank You Letter, Antibiotic Education, Prescription Opioid Use. Follow up: Private Physician; When: 1 - 2 days; Reason: Recheck today's complaints, Continuance of care, Re-evaluation by your physician. Problem is new. Symptoms have improved. jr8
--- NOTE | 2020-03-21 13:00 | ER ---
Nurse's Notes [facility] Name: Desire Edmonds Age: 69 yrs Sex: Female : 1950 Arrival Date: 03/21/2020 Time: 10:25 Bed 5 Private MD: Trace De La Rosa E Diagnosis: Abnormal uterine and vaginal bleeding, unspecified Presentation: 03/21 10:30 Chief complaint: Patient states: "I'm having some vaginal bleeding and discharge. It ss seems to be getting worse." Pt reports that symptoms began 2-3 weeks ago. Coronavirus screen: Client denies travel out of the [place] in the last 14 days. Ebola Screen: Patient denies exposure to infectious person. Patient denies travel to an Ebola-affected area in the 21 days before illness onset. Initial Sepsis Screen: Does the patient meet any 2 criteria? No. Patient's initial sepsis screen is negative. Does the patient have a suspected source of infection? No. Patient's initial sepsis screen is negative. Risk Assessment: Do you want to hurt yourself or someone else? Patient reports no desire to harm self or others. Onset of symptoms is unknown. 10:30 Method Of Arrival: Ambulatory ss 10:30 Acuity: RENU 3 ss Historical: - Allergies: 10:32 Hydrochlorothiazide; ss - PMHx: 10:32 CAD; CVA; DVT; fatty liver; PE; Asthma; ss - PSHx: 10:32 Heart stents; Carotid surgery; ss - Immunization history:: Adult Immunizations up to date. - Social history:: Smoking status: Patient denies any tobacco usage or history of. Screenin:01 Abuse screen: Denies threats or abuse. Denies injuries from another. Nutritional jl7 screening: No deficits noted. Tuberculosis screening: No symptoms or risk factors identified. Fall Risk IV access (20 points). Total Pacheco Fall Scale indicates No Risk (0-24 pts). Assessment: 12:01 General: Appears in no apparent distress. uncomfortable, Behavior is calm, cooperative, jl7 appropriate for age. Pain: Denies pain. Neuro: Level of Consciousness is awake, alert, obeys commands, Oriented to person, place, time, situation. Cardiovascular: Patient's skin is warm and dry. Respiratory: Airway is patent Respiratory effort is even, unlabored, Respiratory pattern is regular, symmetrical. GI: No signs and/or symptoms were reported involving the gastrointestinal system. Abdomen is round non-distended, Patient currently denies diarrhea, nausea, vomiting. : Urine is clear, Reports vaginal bleeding that is spotty. Derm: Skin is pink, warm \\T\\ dry. 13:00 Reassessment: ERP at bedside discussing results and POC. jl7 Vital Signs: 10:30 BP 149 / 87; Pulse 66; Resp 20; Temp 97.2(TE); Pulse Ox 95% on R/A; Weight 83.01 kg; Height 4 ft. 10 in. (147.32 cm); Pain 0/10; 13:00 BP 157 / 67; Pulse 51; Resp 17; Pulse Ox 98% ; Pain 0/10; jl7 10:30 Body Mass Index 38.25 (83.01 kg, 147.32 cm) ED Course: 10:25 Patient arrived in ED. ag5 10:26 Trace De La Rosa MD is Private Physician. 5 10:31 Triage completed. 10:32 Arm band placed on right wrist. 11:22 Una Majano, SAM is Primary Nurse. jl7 11:23 Javi Damon PA is PHCP. jr8 11:23 Walker Salazar MD is Attending Physician. jr8 12:01 Patient has correct armband on for positive identification. Placed in gown. Bed in low jl7 position. Call light in reach. Side rails up X 1. Pulse ox on. NIBP on. Warm blanket given. 12:01 Initial lab(s) drawn, by fl, sent to lab. Inserted saline lock: 22 gauge in right jl7 antecubital area, using aseptic technique. Blood collected. 12:30 US Transvaginal Study (Probe) In Process Unspecified. EDMS 13:14 No provider procedures requiring assistance completed. IV discontinued, intact, jl7 bleeding controlled, No redness/swelling at site. Pressure dressing applied. Administered Medications: No medications were administered Outcome: 13:00 Discharge ordered by . jr8 13:14 Discharged to home ambulatory. jl7 13:14 Condition: stable 13:14 Discharge instructions given to patient, Instructed on discharge instructions, follow up and referral plans. Demonstrated understanding of instructions, follow-up care. 13:14 Patient left the ED. jl7 Signatures: Dispatcher [employer] Yocasta Pena, RN RN ss Javi Damon PA PA jr8 Una Majano RN RN jl7 Hilton Gonzalez [facility]
[2020-03-21 13:19] VITALS: TEMP 97.2
[2020-03-21 13:20] VITALS: BP 157/67; O2SAT 98
== END 2020-03-21 13:14 | disposition home or self-care (01) ==
LOC: ER 10:20
DX: N93.9 Abnormal uterine and vaginal bleeding, unspecified (principal); Z79.01 Long term (current) use of anticoagulants; Z88.8 Allergy status to other drugs, medicaments and biological substances; Z86.73 Personal history of transient ischemic attack (TIA), and cerebral infarction without residual deficits; Z95.818 Presence of other cardiac implants and grafts
CPT/HCPCS: 36415; 76830; 80048; 85025; 99284